=== PATIENT | female | born 1945 | race Caucasian/White ===

== ENCOUNTER 2018-06-12 11:15 | Emergency (ER) | payer OTHER ==
--- NOTE | 2018-06-12 11:19 | PDOC ---
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 Today he finger is red and swollen, who swelling spreading to the left forearm. There is pain with finger movement. Review of systems: No fever/chills, chest pain, shortness of breath, abdominal pain, nausea, vomiting, diarrhea, visual or focal neurologic symptoms, urinary tract symptoms, vaginal bleeding or discharge. Remainder systems reviewed and found to be negative Past medical history: High blood pressure, elevated cholesterol, atrial fibrillation. Maintained on amlodipine, losartan, metoprolol, atorvastatin, Eliquis. Social history: Former smoker but no current use of tobacco. Drinks wine daily, 2 glasses with dinner. No drugs. Fully active and without disability. 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 Family history: Reviewed and noncontributory Physical exam: Alert and oriented well-developed well-nourished no acute distress cheerful and cooperative Afebrile, vital signs normal HEENT clear Neck supple without bruit mass or nodes Chest clear CV regular without murmur rub or gallop Abdomen benign Extremities: There is a superficial abrasion of the left fourth finger, radial aspect of the mid proximal phalanx. There is surrounding swelling and erythema/ induration. There is edema of the left forearm to the elbow, but without redness or streaking. Impression: Dog bite of the hand, cellulitis. Involvement of the forearm. Plan: Wound culture was obtained. Empiric antibiotics administered IV. Wound dressed and bandaged, arm in a sling for elevation. Absolute rest and oral antibiotics with wound check in 24 hours, at which time consider hospitalization if no improvement. Patient agrees to the plan and to follow-up as directed, fully ambulatory and in no distress upon discharge Past History - Past Medical History Allergies/Adverse Reactions: Allergies Allergy/AdvReac Type Severity Reaction Status Date / Time Sulfa (Sulfonamide Allergy Intermediate Rash Verified 06/12/18 11:23 Antibiotics) Home Medications: Ambulatory Orders Amlodipine Besylate [Norvasc -] 5 mg PO DAILY 11/17/11 Amox-Tr/K Cl [Augmentin 875-125mg Tablet -] 1 tab PO BID #14 tablet 06/12/18 Apixaban [Eliquis] 5 mg PO BID 06/12/18 Atorvastatin Ca 06/12/18 Metoprolol Tartrate 25 mg PO DAILY 06/12/18 Metoprolol Tartrate [Lopressor -] 50 mg PO HS 06/12/18 Olmesartan Medoxomil 06/12/18 HTN: Yes Thyroid Disease: Yes - Immunization History Td Vaccination: Yes (2 YEARS AGO) Immunization Up to Date: Yes - Suicide/Smoking/Psychosocial Hx Smoking Status: Yes Smoking History: Former smoker Number of Cigarettes Smoked Daily: 0 *DC/Admit/Observation/Transfer Diagnosis at time of Disposition: Cellulitis Qualifiers: Site of cellulitis: extremity Site of cellulitis of extremity: finger Laterality: left Qualified Code(s): L03.012 - Cellulitis of left finger - Discharge Dispostion Disposition: HOME Condition at time of disposition: Stable Decision to Admit order: No - Prescriptions Prescriptions: Amox-Tr/K Cl [Augmentin 875-125mg Tablet -] 1 tab PO BID #14 tablet - Referrals - Patient Instructions Printed Discharge Instructions: How to Care for a Domestic Animal Bite, DI for Cellulitis -- Adult Additional Instructions: Absolute rest of the left hand and arm, keep elevated on a pillow, intermittent warm compresses, antibiotics as directed. Wound check in 24 hours. Return to the emergency room at that time. If no response to antibiotics, hospitalization may be necessary. Hand infections can be extremely serious, destroy vital nerves or tendons if left inadequately treated, and require close and repeated evaluation as directed. - Post Discharge Activity Forms/Work/School Notes: Back to Work
[2018-06-12] MEDS ORDERED: AMPICILLIN NA/SULBACTAM NA 1.5 GM in SODIUM CHLORIDE 100 ML IVPB ONE (11:29)
[2018-06-12 11:34] VITALS: BP 160/100; PULSE 72; TEMP 97; BMI 25.4
[2018-06-12] MEDS ORDERED: AMPICILLIN NA/SULBACTAM NA 1.5 GM VIAL ONE (11:46)
== END 2018-06-12 13:36 | disposition home or self-care (01) ==
LOC: FER 11:15
DX: L03.012 Cellulitis of left finger (principal); Z87.891 Personal history of nicotine dependence; I10 Essential (primary) hypertension; E07.9 Disorder of thyroid, unspecified
CPT/HCPCS: 73140-TC-LT-FY; 87070; 87205; 99282-25

== ENCOUNTER 2018-07-27 04:22 | Emergency (ER) | payer OTHER ==
[2018-07-27 04:39] VITALS: BP 197/99; PULSE 80; BMI 25.8
--- NOTE | 2018-07-27 04:43 | PDOC ---
History of Present Illness - General Chief Complaint: Urinary Problem Stated Complaint: URINE INFECTION Time Seen by Provider: 07/27/18 04:42 History Source: Patient Exam Limitations: No Limitations - History of Present Illness Initial Comments: 07/27/18 04:55 HPI 72 YOF with h/o Afib on Eliquis, CVA, HTN, HLD, hypothyroid presenting with urinary urgency, frequency and hematuria, a/w suprapubic pressure discomfort since 2AM this morning. she recently had a trip and while in the car did not drink as much water this past weekend. Approx 2 days ago, she had mild urgency and suprapubic discomfort, started drinking cranberry juice with vitamin at that time. Denies fever, chills, dizziness, weakness, N, V, D, No new changes in medications. Allergies: sulfa abx Past Medical History: Afib on Eliquis, CVA, HTN, HLD, hypothyroid Social history: Lives with family. No smoking. No alcohol. No illicit drugs. Surgical history: varicose vein injections, PMD: none Review of systems Constitutional: no fevers or chills. HEENT: no headache or dizziness. CVS: no cp Resp: no sob. Gastrointestinal: no nausea or vomiting. no diarrhea or constipation. no flank pain. +abdominal discomfort Genitourinary: +urinary frequency, urgency and hematuria. no dysuria. MUSCULOSKELETAL: No joint pain and swelling. No neck or back pain. SKIN: no redness or skin changes, no discharge, no rash. No wounds. Hematologic: no easy bruising/bleeding. NEUROLOGIC: No weakness, numbness or tingling. Allergic/Immunologic: no allergies All other systems reviewed and negative, or as documented in HPI. Physical exam: General: Well appearing, awake and alert, NAD. HEENT: NCAT, PERRL, EOMI, clear conjunctiva, anicteric, moist mucus membranes, clear oropharynx, no oral lesions.. Neck: neck supple, FROM Resp: CTAB, normal and even respirations, no respiratory distress CVS: irregularly irregular, no murmurs, 2+ peripheral pulses throughout, no peripheral edema Abdomen: soft, NTND, no peritoneal signs. no CVAT. Back: nontender, normal inspection and ROM MSK: no edema, MERINO x4, ROM intact. No clubbing or cyanosis. normal bulk and tone. Neuro: alert Skin: warm and well perfused, cap refill <2 sec, normal color, no rash 07/27/18 04:58 07/27/18 06:24 Past History - Past Medical History Allergies/Adverse Reactions: Allergies Allergy/AdvReac Type Severity Reaction Status Date / Time Sulfa (Sulfonamide Allergy Intermediate Rash Verified 07/27/18 04:25 Antibiotics) Home Medications: Ambulatory Orders Amlodipine Besylate [Norvasc -] 5 mg PO DAILY 11/17/11 Apixaban [Eliquis] 5 mg PO BID 06/12/18 Atorvastatin Ca 06/12/18 Metoprolol Tartrate 25 mg PO DAILY 06/12/18 Metoprolol Tartrate [Lopressor -] 50 mg PO HS 06/12/18 Olmesartan Medoxomil 06/12/18 Cephalexin Monohydrate [Keflex -] 500 mg PO BID #14 capsule 07/27/18 Phenazopyridine HCl [Pyridium -] 100 mg PO BID 3 Days #6 tablet 07/27/18 Cardiac Disorders: Yes (A-FIB) CVA: Yes (3 YEARS AGO) COPD: No HTN: Yes Hypercholesterolemia: Yes Thyroid Disease: Yes - Immunization History Td Vaccination: Yes (2 YEARS AGO) Immunization Up to Date: Yes - Suicide/Smoking/Psychosocial Hx Smoking Status: Yes Smoking History: Never smoked Have you smoked in the past 12 months: No Number of Cigarettes Smoked Daily: 0 If you are a former smoker, when did you quit?: 1994 Hx Alcohol Use: Yes Drug/Substance Use Hx: No *Physical Exam - Vital Signs Last Vital Signs Temp Pulse Resp BP Pulse Ox 80 16 197/99 H 100 07/27/18 04:30 07/27/18 04:30 07/27/18 04:30 07/27/18 04:30 Medical Decision Making - Medical Decision Making 07/27/18 05:01 hpi as documented VS notable for mild hypertension ddx renal colic, stone, hemorrhagic cystitis, pyelo sx more consistent with early UTI with hemorrhagic component. no flank or abdominal pain or tenderness on exam, so doubt intra abdominal pathology or renal cause such as stone. nontoxic appearing, no systemic sx. declined analgesia here. abdomen soft and benign. UA_with findings suggestive of infection, +leuk esterase, +wbcs, and +nitrite, suggestive of e coli. some ketones and uro, hydrating here appropriately. keflex abx x 1 week pyridium for dysuria sx if they develop f/u urine cultures. no prior to review in the system. Pt informed of my clinical impression, treatment recommendations and disposition plan. All questions answered to patient's satisfaction and expressed understanding and comfort with this. Reasons for returning to the ED sooner discussed with the patient otherwise, follow up with primary care physician. At the time of discharge, the patient is alert, clinically improved, tolerating po and verbalizes understanding of instructions. Patient does not suffer from an acute life-threatening medical condition at this time she is safe for outpatient follow-up. 07/27/18 05:06 07/27/18 05:37 *DC/Admit/Observation/Transfer Diagnosis at time of Disposition: Acute hemorrhagic cystitis - Discharge Dispostion Disposition: HOME Condition at time of disposition: Stable Decision to Admit order: No - Prescriptions Prescriptions: Cephalexin Monohydrate [Keflex -] 500 mg PO BID #14 capsule Phenazopyridine HCl [Pyridium -] 100 mg PO BID 3 Days #6 tablet - Referrals Referrals: Dominic Reeves MD [Staff Physician] - Nathaniel Wong MD [Staff Physician] - - Patient Instructions Printed Discharge Instructions: DI for Urinary Tract Infection (UTI) Additional Instructions: 1) Please follow-up with your primary care doctor in the next 1-2 days. Please call tomorrow for for any urgent issues. - you most likely have a urinary tract infection. take the medications listed as directed. 2) You were given a copy of the tests performed today. Please bring the results with you and review them with your primary care doctor. referrals have been provided for a primary doctor 3) If you have any worsening of symptoms or any other concerns please return to the ED immediately. Return if worsening symptoms including fevers, headache, vomiting, visual or hearing disturbances, abdominal pain, chest pain, shortness of breath, syncope, dehydration, inability to take things by mouth/vomiting, altered mental status, or worsening concerning symptoms. 4) Please continue taking your home medications as directed. your medications on discharge include antibiotics called keflex twice a day x 1 week and pyridium twice a day for three days in case of burning sensation, this medication can cause orange discoloration of your urine . side effects may include upset stomach, abdominal pain, vomiting, or diarrhea. do not drink alcohol with your medications. Stay well hydrated and rest adequately. an appointment. If you cannot follow-up with your primary care doctor please return to the ED - Post Discharge Activity
[2018-07-27] MEDS ORDERED: CEPHALEXIN MONOHYDRATE 500 MG CAPSULE (UD) PO ONE (05:06)
[2018-07-27] MEDS ORDERED: PHENAZOPYRIDINE HCL 100 MG TABLET (FP) PO ONE (05:06)
[2018-07-27] MEDS ORDERED: PHENAZOPYRIDINE HCL 100 MG TABLET (FP) ONE (05:11)
[2018-07-27] MEDS ORDERED: CEPHALEXIN MONOHYDRATE 500 MG CAPSULE (UD) ONE (05:12)
[2018-07-27 05:33] LABS: PH,URINE 8.5 (5.0-8.0); URINE APPEARANCE Turbid; URINE BILIRUBIN 3+ (NEGATIVE); URINE COLOR Red; URINE GLUCOSE (UA) 1+ (NEGATIVE); URINE KETONE 4+ (NEGATIVE); URINE LEUK ESTERASE 3+ (NEGATIVE); URINE NITRITE Positive (NEGATIVE); URINE PROTEIN 3+ (NEGATIVE); URINE UROBILINOGEN >=8.0 E.U./dl mg/dL (0.2-1.0)
[2018-07-27 05:55] LABS: EPI CELLS 7 /HPF (0-5); URINE BACTERIA 345 /hpf (NEGATIVE); URINE RBC 2350 /hpf (0-4); URINE WBC 26 /hpf (0-5)
== END 2018-07-27 05:43 | disposition home or self-care (01) ==
LOC: FER 04:22
DX: N30.01 Acute cystitis with hematuria (principal); I48.91 Unspecified atrial fibrillation; E78.5 Hyperlipidemia, unspecified; I10 Essential (primary) hypertension; Z86.73 Personal history of transient ischemic attack (TIA), and cerebral infarction without residual deficits; Z79.01 Long term (current) use of anticoagulants; E03.9 Hypothyroidism, unspecified
CPT/HCPCS: 81003; 87086; 99281-25

== ENCOUNTER 2020-09-21 20:09 | Emergency (ER) | payer OTHER ==
[2020-09-21 20:22] VITALS: BP 157/68; PULSE 73; TEMP 98; BMI 23.8
[2020-09-21] MEDS ORDERED: ACETAMINOPHEN 500 MG TABLET (FP) PO ONE (21:08)
[2020-09-21] MEDS ORDERED: ACETAMINOPHEN 500 MG TABLET (FP) ONE (21:10)
== END 2020-09-21 21:12 | disposition home or self-care (01) ==
LOC: FER 20:09
DX: S93.401A Sprain of unspecified ligament of right ankle, initial encounter (principal)
CPT/HCPCS: 73610-TC-RT-FY; 73630-TC-RT-FY; 99284-25